=== PATIENT | male | born 1990 ===

== ENCOUNTER → 2024-05-13 10:48 | Outpatient (BNVA) | payer SELFPAY | PROVIDERS: Visit Provider Thoracic Surgery (Cardiothoracic Vascular Surgery) | DX: T63.301D Toxic effect of unspecified spider venom, accidental (unintentional), subsequent encounter (principal); R52 Pain, unspecified | CPT/HCPCS: 87070; 87176; 87205 ==

== ENCOUNTER → 2024-12-03 13:39 | Outpatient (BNVA) | payer OTHER, SELFPAY | PROVIDERS: PCP Nurse Practitioner Family; Visit Provider Nurse Practitioner Family | DX: I10 Essential (primary) hypertension (principal); R53.83 Other fatigue; Z13.220 Encounter for screening for lipoid disorders | CPT/HCPCS: 80053; 80061; 85025 ==

== ENCOUNTER → 2024-12-16 14:41 | Outpatient (BNVA) | payer OTHER, SELFPAY | PROVIDERS: PCP Nurse Practitioner Family | DX: J02.9 Acute pharyngitis, unspecified (principal) | CPT/HCPCS: 87071; 87880 ==

== ENCOUNTER 2024-12-19 11:15 | Outpatient (CLI) | payer OTHER, SELFPAY ==
--- NOTE | 2024-12-19 12:30 | MM_ITS ---
WS: [id number] BILATERAL 3D TOMOSYNTHESIS DIGITAL DIAGNOSTIC MAMMOGRAPHY WITH CAD CLINICAL INFORMATION: N63.21 - Unspecified lump in the left breast, upper outer... HISTORY: LEFT breast lump and pain COMPARISON: None. TECHNIQUE: Bilateral CC, MLO, and ML views. FINDINGS: Fatty replaced breasts bilaterally. Multiple palpable and pain markers LEFT breast. Normal underlying breast tissue on the mammogram. Ultrasound of the areas of interest pending. ULTRASOUND BREAST LEFT TECHNIQUE: Ultrasound left breast focused area of concern. CLINICAL INFORMATION: N63.21 - Unspecified lump in the left breast, upper outer... FINDINGS: Ultrasound LEFT breast in the areas of interest patient directed. Normal underlying parenchymal tissue. No cystic or solid lesions. No suspicious findings to target for biopsy. No suspicious findings in the areas of concern. MM/MM diag tomosynthesis [id number] IMPRESSION: DENSITY: The breasts are almost entirely fatty. BI-RADS: 1 - Negative. FOLLOW UP: See Report
--- NOTE | 2024-12-19 13:00 | US_ITS ---
WS: [id number] BILATERAL 3D TOMOSYNTHESIS DIGITAL DIAGNOSTIC MAMMOGRAPHY WITH CAD CLINICAL INFORMATION: N63.21 - Unspecified lump in the left breast, upper outer... HISTORY: LEFT breast lump and pain COMPARISON: None. TECHNIQUE: Bilateral CC, MLO, and ML views. FINDINGS: Fatty replaced breasts bilaterally. Multiple palpable and pain markers LEFT breast. Normal underlying breast tissue on the mammogram. Ultrasound of the areas of interest pending. ULTRASOUND BREAST LEFT TECHNIQUE: Ultrasound left breast focused area of concern. CLINICAL INFORMATION: N63.21 - Unspecified lump in the left breast, upper outer... FINDINGS: Ultrasound LEFT breast in the areas of interest patient directed. Normal underlying parenchymal tissue. No cystic or solid lesions. No suspicious findings to target for biopsy. No suspicious findings in the areas of concern. US/US breast LT complete [id number] IMPRESSION: DENSITY: The breasts are almost entirely fatty. BI-RADS: 1 - Negative. FOLLOW UP: See Report
== END 2024-12-19 11:16 | disposition home or self-care (01) ==
LOC: RAD 11:16
PROVIDERS: PCP Nurse Practitioner Family; Visit Provider Nurse Practitioner Family
DX: N63.21 Unspecified lump in the left breast, upper outer quadrant (principal)
CPT/HCPCS: 76641; 77062; G0279